=== PATIENT | female | born 1970 | race Caucasian/White ===

== ENCOUNTER → 2018-10-27 | Outpatient (CLI) | payer MEDICARE, BC | END | disposition home or self-care (01) | LOC: HKI 14:24 | DX: M25.562 Pain in left knee (principal); M25.561 Pain in right knee; K59.00 Constipation, unspecified; K31.9 Disease of stomach and duodenum, unspecified; J45.909 Unspecified asthma, uncomplicated; E66.9 Obesity, unspecified; Z88.0 Allergy status to penicillin | CPT/HCPCS: 73564 ==